=== PATIENT | female | born 1970 | race Caucasian/White ===

== ENCOUNTER → 2020-04-18 10:56 | Outpatient (CLI) | payer BC, SELFPAY ==
[2020-04-18 11:12] LABS: Pathologist Comment May follow
[2020-04-18 12:42] LABS: RBC /Synovial Fluid 0.014 10^6/uL (0); Synovial Fld Polynuclear WBC % 91.1 %
[2020-04-18 12:43] LABS: Synovial Fld Mononuclear WBC % 8.9 %; Synovial Fld Polynuclear WBC # 13.461 10^3/uL
[2020-04-18 12:48] LABS: AUTO B FLUID DILUENT BKGD CT WBC <0.1 RBC <0.01 (W<.1,R<.01); Appearance /Synovial Fluid Cloudy (CLEAR); Color / Synovial Fluid Yellow (Pale Yellow)
[2020-04-18 12:56] LABS: Source / Synovial Fluid LEFT KNEE; Source- Body Fluid SYNOVIAL
[2020-04-18 14:37] LABS: Lymph 9 %; Monocyte /Synovial Fluid 3 %; Neutrophil 88 % (0-25)
[2020-04-18 14:38] LABS: Body Fluid QC Type(s) BF1Q,BF2Q
[2020-04-19 13:20] LABS: Pathologist Review Reviewed
== END ==
LOC: LAB 11:03 → LABSPEC 11:04
PROVIDERS: PCP Preventive Medicine Occupational Medicine; Referring Provider Physician Assistant; Visit Provider Physician Assistant
DX: M25.462 Effusion, left knee (principal)
CPT/HCPCS: 87015; 87070; 87075; 87101; 87116; 87205; 87206; 89050; 89051; 89060